=== PATIENT | female | born 1995 | race Caucasian/White ===

== ENCOUNTER 2016-06-09 05:24 | Inpatient (IN) | payer OTHER ==
[2016-06-09 06:17] LABS: HEMOGLOBIN 11.3 gm/dl (12.3-15.3); RED BLOOD COUNT 3.92 M/UL (4.00-5.10); WHITE BLOOD COUNT 10.3 K/UL (4.5-11.0)
[2016-06-10 03:15] LABS: HEMOGLOBIN 9.6 gm/dl (12.3-15.3)
== END 2016-06-11 14:40 | disposition home or self-care (01) | DRG 775 ==
LOC: OB 05:24
PROVIDERS: ADMIT Obstetrics & Gynecology
PROC: 10E0XZZ Delivery of Products of Conception, External Approach (ICD-10-PCS; principal; 2016-06-09)
PROC: 10907ZC Drainage of Amniotic Fluid, Therapeutic from Products of Conception, Via Natural or Artificial Opening (ICD-10-PCS; 2016-06-09)
DX: O24.420 Gestational diabetes mellitus in childbirth, diet controlled (principal); O69.81X0 Labor and delivery complicated by cord around neck, without compression, not applicable or unspecified; O99.344 Other mental disorders complicating childbirth; O62.2 Other uterine inertia; O12.04 Gestational edema, complicating childbirth; Z3A.38 38 weeks gestation of pregnancy; Z37.0 Single live birth; F32.9 Major depressive disorder, single episode, unspecified; F41.9 Anxiety disorder, unspecified
CPT/HCPCS: 36415; 51702; 81001; 82800; 82962; 85014; 85018; 85025; J2210; J2405; J2590; J2795; J3010; J7030